=== PATIENT | male | born 1980 | race Hispanic/Latino ===

== ENCOUNTER 2018-07-02 11:25 | Outpatient (CLI) | payer OTHER ==
--- NOTE | 2018-07-02 15:58 | MRI ---
EXAM: RIGHT SHOULDER MRI WITHOUT IV CONTRAST: 07/02/18 HISTORY: Right shoulder pain, bursitis of right shoulder. Multiplanar, multisequence MRI examination of the right shoulder is performed. There are multiple foc i of magnetic susceptibility artifact as well as motion artifact resulting in fairly significant imag e degradation. AC joint arthrosis changes are noted with minimal fluid and fat stranding in the subac romial subdeltoid bursa. There is a high grade complete or near complete bursal sided tear of the sup raspinatus tendon insertion region with probable associated infraspinatus interstitial and minimally delaminating tear. There is some increased fluid in the inferior occipital recess. The biceps tendon and subscapularis tendons appear intact. Rotator cuff muscles appear within normal limits of signal and volume. IMPRESSION: AC joint arthrosis changes. Minimal increased fluid in the bicipital recess. High grade near full th ickness insertional tear of the supraspinatus tendon at the insertion. Probable associated undersurfa ce and interstitial tear of the infraspinatus tendon. Exam limited because of motion and magnetic saurabh ceptibility artifact. POS: [facility]
== END 2018-07-02 11:26 | disposition home or self-care (01) ==
LOC: SCSMRI 11:25
PROVIDERS: ATTEND Family Medicine
DX: M75.51 Bursitis of right shoulder (principal); M75.21 Bicipital tendinitis, right shoulder; M19.011 Primary osteoarthritis, right shoulder; M75.121 Complete rotator cuff tear or rupture of right shoulder, not specified as traumatic

== ENCOUNTER 2019-05-07 10:57 | Outpatient (CLI) | payer OTHER ==
--- NOTE | 2019-05-07 12:44 | MRI ---
MR of the right wrist without contrast INDICATION: 38-year-old male with right wrist injury with pain and loss of range of motion since 2018 COMPARISON: None FINDINGS: There is a moderate intrasubstance tendinosis involving the ECU tendon with mild ECU tenosy novitis. Motion artifact limits image detail of the TFC. Subchondral cystlike abnormalities seen within the ulnar base of the lunate. Remaining extensor tendons appear intact. The carpal tunnel cont ents appear within normal limits. The median nerve appears within normal limits. The ulnar neural vasculature appears within normal limits. Scapholunate and lunotriquetral ligaments appear within nor mal limits. The extrinsic ligaments appear intact. No muscular atrophy is present. IMPRESSION: 1. 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 2. Nonspecific subchondral cystlike abnormality involving the ulnar base of the lunate. This can be s een with entities such as ulnar carpal abutment syndrome.
== END 2019-05-07 10:58 | disposition home or self-care (01) ==
LOC: SCSMRI 10:57
PROVIDERS: ATTEND Family Medicine
DX: S66.911D Strain of unspecified muscle, fascia and tendon at wrist and hand level, right hand, subsequent encounter (principal); M65.831 Other synovitis and tenosynovitis, right forearm; M67.833 Other specified disorders of tendon, right wrist; R93.7 Abnormal findings on diagnostic imaging of other parts of musculoskeletal system